=== PATIENT | female | born 1995 | race Caucasian/White ===

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

== ENCOUNTER 2017-09-15 22:43 | Emergency (ER) | payer SELFPAY ==
[2017-09-15] MEDS ORDERED: Acetaminophen 325 MG Tab PO ONE (23:08)
[2017-09-15] MEDS ORDERED: Sodium Chloride 0.9% 1,000 ML IV ONE (23:08)
[2017-09-15 23:44] LABS: CHLORIDE,CL 104 mmol/L (101-111); SODIUM,NA 135 mmol/L (135-145)
[2017-09-16] MEDS ORDERED: Iopamidol 612 MG/ML 75 ML Bottle IVPUSH ONE (00:46)
[2017-09-16 01:49] VITALS: BP 100/67
--- NOTE | 2017-09-16 01:52 | EDM.PDOC ---
ED HPI GENERAL MEDICAL PROBLEM - General Chief Complaint: General Stated Complaint: PAIN IN RIBS AND PELVIC AREA [id number] Time Seen by Provider: 09/15/17 23:00 Source of Information: Reports: Patient History Limitations: Reports: No Limitations - History of Present Illness INITIAL COMMENTS - FREE TEXT/NARRATIVE: C/O pain in pelvic area and bilateral ribs since Tuesday, some nausea no vomiting. No urinary complaints. Headache Pain Score (Numeric/FACES): 6 Throat Pain Score (Numeric/FACES): 6 - Related Data Allergies Allergy/AdvReac Type Severity Reaction Status Date / Time No Known Allergies Allergy Verified 09/15/17 22:59 Home Meds: Home Meds Sertraline [Zoloft] 100 mg PO DAILY 09/15/17 [History] Past Medical History HEENT History: Reports: Other (See Below) Other HEENT History: strabismus of left eye Cardiovascular History: Reports: None Respiratory History: Reports: None Gastrointestinal History: Reports: None Genitourinary History: Reports: None MANAGER CODE History: Reports: , Other (See Below) Other OB/BYN History: currently 37 weeks with healthy first Musculoskeletal History: Reports: None Neurological History: Reports: None Psychiatric History: Reports: None Endocrine/Metabolic History: Reports: None Hematologic History: Reports: None Immunologic History: Reports: None Oncologic (Cancer) History: Reports: None Dermatologic History: Reports: Eczema - Infectious Disease History Infectious Disease History: Reports: None - Past Surgical History Head Surgeries/Procedures: Reports: None Social & Family History - Family History Family Medical History: Noncontributory - Tobacco Use Smoking Status *Q: Never Smoker - Caffeine Use Caffeine Use: Reports: Coffee - Recreational Drug Use Recreational Drug Use: No ED ROS GENERAL - Review of Systems Review Of Systems: See Below Constitutional: Reports: Fever, Chills HEENT: Reports: No Symptoms Respiratory: Reports: No Symptoms GI/Abdominal: Reports: Decreased Appetite. Denies: Diarrhea, Vomiting : Reports: No Symptoms, Other (LMP one week ago). Denies: Discharge, Dysuria Skin: Reports: No Symptoms Neurological: Reports: Headache ED EXAM, GENERAL - Physical Exam Exam: See Below Exam Limited By: No Limitations General Appearance: Alert, Mild Distress Eye Exam: Bilateral Eye: EOMI Ears: Normal External Exam, Normal TMs Nose: Normal Inspection Throat/Mouth: Normal Inspection Head: Atraumatic, Normocephalic Neck: Normal Inspection Respiratory/Chest: No Respiratory Distress, Lungs Clear, Normal Breath Sounds Cardiovascular: Normal Peripheral Pulses, Regular Rate, Rhythm, Tachycardia GI/Abdominal: Normal Bowel Sounds, Soft, Tender (lower abdomen right greater than left) (Female) Exam: Adnexal Tenderness (right greater than left), Cervix Motion Tenderness. No: Vaginal Discharge Back Exam: CVA Tenderness (L), CVA Tenderness (R) Extremities: Normal Inspection Neurological: Alert, Oriented, Normal Cognition Psychiatric: Normal Affect, Normal Mood Skin Exam: Warm, Dry, Intact, Normal Color Course - Vital Signs Last Recorded V/S: Last Vital Signs Temp 99.7 F 09/16/17 01:48 Pulse 117 H 09/16/17 01:48 Resp 16 09/16/17 01:48 BP 100/67 09/16/17 01:48 Pulse Ox 99 09/16/17 01:48 - Orders/Labs/Meds Orders: Active Orders 24 hr Category Date Time Status Abdomen w wo Cont [CT] Urgent Exams 09/16/17 00:23 Taken CULTURE STREP A CONFIRMATION [RM] Stat Lab 09/15/17 23:02 Results STREP SCRN A RAPID W CULT CONF [RM] Stat Lab 09/15/17 23:02 Results WET PREP [MYC] Stat Lab 09/16/17 00:33 Ordered Labs: Laboratory Tests 09/15/17 09/15/17 09/15/17 Range/Units 23:18 23:18 23:18 WBC 8.0 (5.0-10.0) 10^3/uL RBC 4.05 L (4.2-5.4) 10^6/uL Hgb 12.1 D (12.0-16.0) g/dL Hct 35.4 L (37.0-47.0) % MCV 87.4 (80-100) fL MCH 29.9 (27.0-34.0) pg MCHC 34.2 (33.0-35.0) g/dL Plt Count 182 (150-450) 10^3/uL Neut % (Auto) 71.6 (42.2-75.2) % Lymph % (Auto) 18.3 L (20.5-50.1) % [place] % (Auto) 10.0 H (2-8) % Eos % (Auto) 0.0 L (1.0-3.0) % Baso % (Auto) 0.1 (0.0-1.0) % Sodium 135 (135-145) mmol/L Potassium 3.4 L (3.6-5.0) mmol/L Chloride 104 (101-111) mmol/L Carbon Dioxide 25.0 (21.0-31.0) mmol/L Anion Gap 9.4 BUN 11 (7-18) mg/dL Creatinine 0.9 (0.6-1.3) mg/dL Est Cr Clr Drug Dosing 78.86 mL/min Estimated GFR (MDRD) > 60 BUN/Creatinine Ratio 12.22 Glucose 98 (74-105) mg/dL Lactic Acid 0.7 (0.5-2.2) mmol/L Calcium 8.7 (8.4-10.2) mg/dl Total Bilirubin 0.5 (0.2-1.0) mg/dL AST 22 (10-42) IU/L ALT 20 (10-60) IU/L Alkaline Phosphatase 46 (42-121) IU/L Total Protein 7.1 (6.7-8.2) g/dl Albumin 3.9 (3.2-5.5) g/dl Globulin 3.2 Albumin/Globulin Ratio 1.22 Urine Color (YELLOW) Urine Appearance (CLEAR) Urine pH (5.0-9.0) Ur Specific [place] (1.005-1.030) Urine Protein (NEGATIVE) Urine Glucose (UA) (NEGATIVE) Urine Ketones (NEGATIVE) Urine Occult Blood (NEGATIVE) Urine Nitrite (NEGATIVE) Urine Bilirubin (NEGATIVE) Urine Urobilinogen (0.2-1.0) mg/dL Ur Leukocyte Esterase (NEGATIVE) Urine RBC /HPF Urine WBC (0-5/HPF) /HPF Ur Epithelial Cells /HPF Urine Bacteria (0-FEW/HPF) /HPF Urine Mucus /LPF Urine Other Urine HCG, Qual 09/15/17 09/15/17 Range/Units 23:59 23:59 WBC (5.0-10.0) 10^3/uL RBC (4.2-5.4) 10^6/uL Hgb (12.0-16.0) g/dL Hct (37.0-47.0) % MCV (80-100) fL MCH (27.0-34.0) pg MCHC (33.0-35.0) g/dL Plt Count (150-450) 10^3/uL Neut % (Auto) (42.2-75.2) % Lymph % (Auto) (20.5-50.1) % [place] % (Auto) (2-8) % Eos % (Auto) (1.0-3.0) % Baso % (Auto) (0.0-1.0) % Sodium (135-145) mmol/L Potassium (3.6-5.0) mmol/L Chloride (101-111) mmol/L Carbon Dioxide (21.0-31.0) mmol/L Anion Gap BUN (7-18) mg/dL Creatinine (0.6-1.3) mg/dL Est Cr Clr Drug Dosing mL/min Estimated GFR (MDRD) BUN/Creatinine Ratio Glucose (74-105) mg/dL Lactic Acid (0.5-2.2) mmol/L Calcium (8.4-10.2) mg/dl Total Bilirubin (0.2-1.0) mg/dL AST (10-42) IU/L ALT (10-60) IU/L Alkaline Phosphatase (42-121) IU/L Total Protein (6.7-8.2) g/dl Albumin (3.2-5.5) g/dl Globulin Albumin/Globulin Ratio Urine Color Yellow (YELLOW) Urine Appearance Slightly cloudy (CLEAR) Urine pH 7.0 (5.0-9.0) Ur Specific [place] 1.020 (1.005-1.030) Urine Protein 30 H (NEGATIVE) Urine Glucose (UA) Negative (NEGATIVE) Urine Ketones 40 H (NEGATIVE) Urine Occult Blood Trace-intact H (NEGATIVE) Urine Nitrite Negative (NEGATIVE) Urine Bilirubin Small H (NEGATIVE) Urine Urobilinogen 0.2 (0.2-1.0) mg/dL Ur Leukocyte Esterase Negative (NEGATIVE) Urine RBC 0-5 /HPF Urine WBC 0-5 (0-5/HPF) /HPF Ur Epithelial Cells Moderate H /HPF Urine Bacteria Few (0-FEW/HPF) /HPF Urine Mucus Rare /LPF Urine Other Urine HCG, Qual Negative Meds: Medications Discontinued Medications Generic Name Dose Route Start Last Admin Trade Name Freq PRN Reason Stop Dose Admin Acetaminophen 650 mg 09/15/17 23:08 09/15/17 23:26 Tylenol PO 09/15/17 23:09 650 mg NOW ONE Administration Sodium Chloride 1,000 mls @ 999 mls/hr 09/15/17 23:08 09/15/17 23:25 Normal Saline IV 09/16/17 00:08 999 mls/hr .BOLUS ONE Administration Iopamidol 75 ml 09/16/17 00:46 Isovue-300 (61%) IVPUSH 09/16/17 00:47 ONETIME ONE - Radiology Interpretation Free Text/Narrative:: CT abdomen negative Departure - Departure Time of Disposition: 01:41 Disposition: Home, Self-Care 01 Condition: Good Clinical Impression: Pelvic pain, Bacterial vaginitis - Discharge Information Instructions: Pelvic Pain, Female, [id number] Forms: ED Department Discharge Additional Instructions: increase fluids, fruit and fiber in diet metronidazole one application vaginally at bed x 5d clinic follow up if continued pain - My Orders Last 24 Hours: My Active Orders 09/15/17 23:02 CULTURE STREP A CONFIRMATION [RM] Stat STREP SCRN A RAPID W CULT CONF [RM] Stat 09/16/17 00:23 Abdomen w wo Cont [CT] Urgent 09/16/17 00:33 WET PREP [MYC] Stat - Assessment/Plan Last 24 Hours: My Active Orders 09/15/17 23:02 CULTURE STREP A CONFIRMATION [RM] Stat STREP SCRN A RAPID W CULT CONF [RM] Stat 09/16/17 00:23 Abdomen w wo Cont [CT] Urgent 09/16/17 00:33 WET PREP [MYC] Stat
== END 2017-09-16 01:53 | disposition home or self-care (01) ==
LOC: DL.ED 22:43
DX: N76.0 Acute vaginitis (principal); R10.2 Pelvic and perineal pain; Z79.899 Other long term (current) drug therapy
CPT/HCPCS: 36415; 74170; 80053; 81001; 81025; 83605; 85025; 87081; 87210; 87430; 87804; 96365; 99284; A9270; J7030; Q9967

== ENCOUNTER 2018-02-16 22:00 | Emergency (ER) | payer OTHER ==
[2018-02-16] MEDS ORDERED: Acetaminophen/HYDROcodone 325-10 MG Tab PO ONE (22:01)
[2018-02-16 22:15] VITALS: BP 133/82
[2018-02-16] MEDS ORDERED: Ondansetron 4 MG Tab.DIS PO ONE (22:24)
--- NOTE | 2018-02-16 22:28 | EDM.PDOC ---
ED HPI GENERAL MEDICAL PROBLEM - General Chief Complaint: Headache Stated Complaint: MIGRAINE Time Seen by Provider: 02/16/18 22:25 Source of Information: Reports: Patient History Limitations: Reports: No Limitations - History of Present Illness INITIAL COMMENTS - FREE TEXT/NARRATIVE: gives prior h/o migraines but never like this, without on-off visual fussiness, nauseous but no vomiting. usually pain over right eye region but now it's across forehead. had eval before but not by Neuro. never had CAT of head. 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 PRODUCT MANAGER History: currently 37 weeks with healthy first Musculoskeletal History: Reports: None Neurological History: Reports: None Psychiatric History: Reports: None Endocrine/Metabolic History: Reports: None Hematologic History: Reports: None Immunologic History: Reports: None Oncologic (Cancer) History: Reports: None Dermatologic History: Reports: Eczema - Infectious Disease History Infectious Disease History: Reports: None - Past Surgical History Head Surgeries/Procedures: Reports: None HEENT Surgical History: Reports: Oral Surgery Social & Family History - Family History Family Medical History: Noncontributory - Tobacco Use Smoking Status *Q: Never Smoker - Caffeine Use Caffeine Use: Reports: None - Recreational Drug Use Recreational Drug Use: No ED ROS GENERAL - Review of Systems Review Of Systems: ROS reveals no pertinent complaints other than HPI. - Physical Exam Exam: See Below Exam Limited By: No Limitations General Appearance: Alert, WD/WN, Mild Distress, Other (discomfort) Eye Exam: Bilateral Eye: PERRL (pupils ess ER @ 4mm) Ears: Hearing Grossly Normal, Other (left TM injected) Throat/Mouth: Normal Voice, No Airway Compromise Head Exam: Atraumatic Neck: Non-Tender, Full Range of Motion Respiratory/Chest: No Respiratory Distress Cardiovascular: Regular Rate, Rhythm GI/Abdominal: Soft, Non-Tender Neuro Exam (Abbreviated): Alert, Oriented, Normal Cognition, Normal Gait, No Motor/Sensory Deficits Psychiatric: Tearful Skin Exam: Warm, Dry, Normal Color Course - Vital Signs Last Recorded V/S: Last Vital Signs Temp 37.0 C 02/16/18 22:13 Pulse 97 02/16/18 22:13 Resp 18 02/16/18 22:13 BP 133/82 02/16/18 22:13 Pulse Ox 99 02/16/18 22:13 - Orders/Labs/Meds Meds: Medications Discontinued Medications Generic Name Dose Route Start Last Admin Trade Name Nael PRN Reason Stop Dose Admin Azithromycin 500 mg 02/17/18 00:06 Zithromax PO 02/17/18 00:07 ONETIME ONE Ketorolac Tromethamine 30 mg 02/16/18 23:39 02/16/18 23:47 Toradol IM 02/16/18 23:40 30 mg ONETIME ONE Administration Ondansetron HCl 4 mg 02/16/18 22:24 02/16/18 22:34 Zofran Odt PO 02/16/18 22:25 4 mg ONETIME ONE Administration - Re-Assessments/Exams Free Text/Narrative Re-Assessment/Exam: 02/17/18 00:08 results discussed with pt. Departure - Departure Time of Disposition: 00:08 Disposition: Home, Self-Care 01 Condition: Good Clinical Impression: Migraine Otitis media Qualifiers: Otitis media type: suppurative Chronicity: acute Laterality: left Recurrence: not specified as recurrent Spontaneous tympanic membrane rupture: without spontaneous rupture Qualified Code(s): H66.002 - Acute suppurative otitis media without spontaneous rupture of ear drum, left ear - Discharge Information Instructions: Migraine Headache, [id number] Forms: ED Department Discharge Additional Instructions: 1) rest 2) follow up at clinic 3) recheck if there is any change or concern rx given; z-khai
[2018-02-16] MEDS ORDERED: Ketorolac 30 MG/ML SDV IM ONE (23:39)
[2018-02-17] MEDS ORDERED: Azithromycin 250 MG Tab PO ONE (00:06)
[2018-02-17] MEDS ORDERED: Acetaminophen/HYDROcodone 325-10 MG Tab ONE (00:08)
== END 2018-02-17 00:14 | disposition home or self-care (01) ==
LOC: DL.ED 22:00
DX: G43.909 Migraine, unspecified, not intractable, without status migrainosus (principal); H66.002 Acute suppurative otitis media without spontaneous rupture of ear drum, left ear; Z79.899 Other long term (current) drug therapy
CPT/HCPCS: 70450; 96372; 99284; A9270; J1885

== ENCOUNTER 2020-12-20 20:56 | Emergency (ER) | payer OTHER ==
[2020-12-20 23:10] VITALS: BP 119/80; PULSE 98
--- NOTE | 2020-12-20 23:52 | CR ---
PROCEDURE INFORMATION: Exam: XR Left Ankle Exam date and time: 12/20/2020 11:16 PM Age: 25 years old Clinical indication: Other: Pain; Additional info: Tripped on curb TECHNIQUE: Imaging protocol: XR Left ankle. Views: 3 or more views. COMPARISON: No relevant prior studies available. FINDINGS: Bones/joints: The bones appear intact. No acute fracture is identified. The ankle mortise is congruent. No ankle joint effusion is identified. Soft tissues: The soft tissues are within normal limits. IMPRESSION: No acute osseous injury identified.
--- NOTE | 2020-12-21 01:09 | EDM.PDOC ---
ED HPI GENERAL MEDICAL PROBLEM - General Chief Complaint: Lower Extremity Injury/Pain Stated Complaint: TOP LEFT FOOT PAIN, RIGHT KNEE CUT Time Seen by Provider: 12/20/20 22:16 Source of Information: Reports: Patient, RN - History of Present Illness INITIAL COMMENTS - FREE TEXT/NARRATIVE: 25 year old female who presents to the ER for left ankle discomfort. Patient reports tripping on a curb as early as 7:40 AM and came to the ER at 10:16 PM for evaluation. Patient is reporting swelling and pain on the left ankle. She denies hitting her head. She has not tried anything for discomfort. Tried icin g the left ankle with some relief. She has been able to ambulate on her left foot. Anus Pain Score (Numeric/FACES): 8 Left Ankle Pain Score (Numeric/FACES): 5 - Related Data Allergies Allergy/AdvReac Type Severity Reaction Status Date / Time No Known Allergies Allergy Verified 12/20/20 23:10 Home Meds: Home Meds . 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 IRON ERECTOR History: currently 37 weeks with healthy first Musculoskeletal History: Reports: None Neurological History: Reports: None Psychiatric History: Reports: None Endocrine/Metabolic History: Reports: None Hematologic History: Reports: None Immunologic History: Reports: None Oncologic (Cancer) History: Reports: None Dermatologic History: Reports: Eczema - Infectious Disease History Infectious Disease History: Reports: None - Past Surgical History Head Surgeries/Procedures: Reports: None HEENT Surgical History: Reports: Oral Surgery Social & Family History - Family History Family Medical History: No Pertinent Family History - Tobacco Use Tobacco Use Status *Q: Never Tobacco User - Caffeine Use Caffeine Use: Reports: Coffee, Soda - Recreational Drug Use Recreational Drug Use: No Review of Systems - Review of Systems Review Of Systems: Comprehensive ROS is negative, except as noted in HPI. ED EXAM, GENERAL - Physical Exam Exam: See Below Exam Limited By: No Limitations General Appearance: Alert, Mild Distress Respiratory/Chest: No Respiratory Distress, Lungs Clear, Normal Breath Sounds, No Accessory Muscle Use, Chest Non-Tender Cardiovascular: Normal Peripheral Pulses, Regular Rate, Rhythm, No Edema, No Gallop, No JVD, No Murmur, No Rub Peripheral Pulses: 3+: Posterior Tibial (L), Dorsalis Pedis (L) Extremities: Normal Capillary Refill, Limited Range of Motion (mild left ankle swelling with no bruising noted) Neurological: Alert, Oriented, Abnormal Gait Psychiatric: Normal Affect, Normal Mood Skin Exam: Warm, Dry Lymphatic: No Adenopathy Course - Vital Signs Last Recorded V/S: Last Vital Signs Temp 98.0 F 12/20/20 23:07 Pulse 98 12/20/20 23:07 Resp 17 12/20/20 23:07 BP 119/80 12/20/20 23:07 Pulse Ox 100 12/20/20 23:07 - Re-Assessments/Exams Free Text/Narrative Re-Assessment/Exam: Reviewed exam findings and x-ray results with patient. [place] wrap applied with ice. Encourage RICE Ibuprofen Tylenol as needed for discomfort. Departure - Departure Time of Disposition: 01:15 Disposition: Home, Self-Care 01 Condition: Good Clinical Impression: Left ankle pain Qualifiers: Chronicity: acute Qualified Code(s): M25.572 - Pain in left ankle and joints of left foot Fall Qualifiers: Encounter type: initial encounter Qualified Code(s): W19.XXXA - Unspecified fall, initial encounter - Discharge Information Instructions: RICE Therapy for Routine Care of Injuries, [id number], Ankle Pain Forms: ED Department Discharge Additional Instructions: Follow the RICE instructions as indicated on the AVS as discussed. Patient verbalized understanding. Sepsis Event Note (ED) - Evaluation Sepsis Screening Result: No Definite Risk
== END 2020-12-21 01:25 | disposition home or self-care (01) ==
LOC: DL.ED 20:56
DX: O99.891 Other specified diseases and conditions complicating pregnancy (principal); M25.572 Pain in left ankle and joints of left foot; Z3A.37 37 weeks gestation of pregnancy; W01.0XXA Fall on same level from slipping, tripping and stumbling without subsequent striking against object, initial encounter
CPT/HCPCS: 73610-LT; 99282; 99283-25

== ENCOUNTER 2022-08-28 09:28 | Emergency (ER) | payer OTHER ==
[2022-08-28 10:16] VITALS: BP 115/79; PULSE 86
[2022-08-28 10:26] LABS: ANION GAP 10.6 mEq/L (7-13); CHLORIDE,CL 104 mmol/L (98-107); SODIUM,NA 139 mmol/L (136-145)
[2022-08-28 10:30] LABS: ESTIMATED GFR 93 mL/min (>=60)
== END 2022-08-28 12:58 | disposition home or self-care (01) ==
LOC: DL.ED 09:28
DX: N83.201 Unspecified ovarian cyst, right side (principal); N83.202 Unspecified ovarian cyst, left side
CPT/HCPCS: 36415; 76857; 80053; 81003; 84703; 85025; 99284

== ENCOUNTER 2023-11-06 16:23 | Emergency (ER) | payer BC, OTHER ==
[2023-11-06] MEDS: LORazepam 2 MG/ML SDV IVPUSH ONE (17:02)
[2023-11-06] MEDS: Ondansetron 4 MG/2 ML SDV IV ONE (17:03)
[2023-11-06] MEDS: Sodium Chloride 0.9% 1,000 ML IV ONE ×2 (17:03)
[2023-11-06] MEDS: Famotidine 20 MG/2 ML SDV IVPUSH ONE (17:04)
[2023-11-06 17:12] LABS: BASOPHILS PERCENT AUTO 0.3 % (0.0-1.0); EOSINOPHILS PERCENT AUTO 0.3 % (1.0-3.0); HEMATOCRIT 40.5 % (37.0-47.0); HEMOGLOBIN 14.3 g/dL (12.0-16.0); LYMPHOCYTES PERCENT AUTO 7.2 % (20.5-50.1); MEAN CORPUSCULAR HEMOGLOBIN 29.9 pg (27.0-34.0); MEAN CORPUSCULAR HGB CONC 35.3 g/dL (33.0-35.0); MEAN CORPUSCULAR VOLUME 84.7 fL (80-100); MONOCYTES PERCENT AUTO 5.6 % (2-8); NEUTROPHILS PERCENT AUTO 86.6 % (42.2-75.2); PLATELET COUNT,PLT 278 10^3/uL (150-450); RED BLOOD CELL COUNT 4.78 10^6/uL (4.2-5.4); WHITE BLOOD CELL COUNT,WBC 11.2 10^3/uL (5.0-10.0)
[2023-11-06] MEDS: Sodium Chloride 0.9% 10 ML Syringe FLUSH PRN (17:22)
[2023-11-06 17:29] LABS: A/G RATIO 1.1; ALANINE AMINOTRANSFERASE,ALT 34 U/L (14-59); ALBUMIN 4.3 g/dL (3.4-5.0); ALKALINE PHOSPHATASE 62 U/L (46-116); ANION GAP 15.8 mEq/L (7-13); ASPARTATE AMNIOTRANSFERASE,AST 25 U/L (15-37); BILIRUBIN TOTAL 0.6 mg/dL (0.2-1.0); BLOOD UREA NITROGEN,BUN 12 mg/dL (7-18); BUN/CREATININE RATIO 11.9 (No establ ref range); CALCIUM 8.9 mg/dL (8.5-10.1); CARBON DIOXIDE,CO2 22 mmol/L (21-32); CHLORIDE,CL 107 mmol/L (98-107); CREATININE 1.01 mg/dL (0.55-1.02); EST CRCL DRUG DOSING (CG) 64.67 mL/min; GLUCOSE RANDOM 100 mg/dL (70-99); LIPASE 32 U/L (16-77); MAGNESIUM 1.5 mg/dL (1.8-2.4); POTASSIUM,K 3.8 mmol/L (3.5-5.1); PROTEIN TOTAL,TP 8.2 g/dL (6.4-8.2); SODIUM,NA 141 mmol/L (136-145)
[2023-11-06 17:30] LABS: ESTIMATED GFR 79 mL/min (>=60)
[2023-11-06 17:33] LABS: LACTIC ACID 1.3 mmol/L (0.4-2.0)
[2023-11-06] MEDS: Magnesium Sulfate/Water 2 GM in Premix Bag 1 BAG IV ONE (17:38)
[2023-11-06] MEDS: Take Home: Ondansetron 4 MG Tab.DIS, 5 Tab Pack PO ONE (18:21)
[2023-11-06 18:29] LABS: APPEARANCE,URINE CLEAR (CLEAR); BILIRUBIN,URINE NEGATIVE (NEGATIVE); COLOR,URINE YELLOW (YELLOW); GLUCOSE,URINE NEGATIVE (NEGATIVE); KETONES,URINE 80 (NEGATIVE); LEUKOCYTE ESTERASE,URINE NEGATIVE (NEGATIVE); NITRITE,URINE NEGATIVE (NEGATIVE); OCCULT BLOOD,URINE NEGATIVE (NEGATIVE); PH,URINE >= 9.0 (5.0-9.0); PROTEIN,URINE 30 (NEGATIVE); UROBILINOGEN,URINE 0.2 mg/dL (0.2-1.0)
[2023-11-06 18:37] LABS: AMORPHOUS SEDIMENT,URINE FEW /HPF (NOT SEEN); BACTERIA,URINE FEW /HPF (0-FEW/HPF); EPITHELIAL CELLS,URINE FEW /HPF (NOT SEEN); MUCUS,URINE MODERATE /LPF (NOT SEEN); RBC,URINE 0-5 /HPF (0-5); WBC,URINE 0-5 /HPF (0-5/HPF)
[2023-11-06 19:41] VITALS: BP 95/56; PULSE 116
== END 2023-11-06 19:51 | disposition home or self-care (01) ==
LOC: DL.ED 16:23
DX: E83.42 Hypomagnesemia (principal); E86.0 Dehydration; K29.00 Acute gastritis without bleeding; Z79.899 Other long term (current) drug therapy
CPT/HCPCS: 36415; 80053; 81001; 81025; 83605; 83690; 83735; 84145; 85025; 96365; 96366; 96375; 99284; J2060; J2405; J3475; J3490; J7030; Q0162